=== PATIENT | male | born 1950 | race Hispanic/Latino ===

== ENCOUNTER 2023-11-28 18:36 | Emergency (ER) | payer MEDICARE ==
[2023-11-28 19:34] LABS: #Basophils 0.1 thou/uL (0.0-0.2); #Eosinphils 0.5 thou/uL (0.0-0.7); #Lymphocytes 1.3 thou/uL (1.20-3.40); #Monocytes 0.6 thou/uL (0.11-0.59); #Neutrophils 7.3 thou/uL (1.40-6.50); %Basophils 1.5 % (0.0-1.0); %Eosinophils 5.3 % (0.0-10.0); %Lymphocytes 13.5 % (21.0-51.0); %Monocytes 5.6 % (0.0-10.0); %Neutrophils 74.1 % (42.0-75.0); Hematocrit 40.8 % (42.0-52.0); Hemoglobin 13.8 g/dL (14.0-18.0); Mean Corpuscular HGB CONC 33.9 g/dL (32.0-36.0); Mean Corpuscular Hemoglobin 30.7 pg (27.0-31.0); Mean Corpuscular Volume 90.5 fl (78.0-98.0); Mean Platelet Volume 5.7 fL (7.4-10.4); Platelet Count 405 10x3/uL (130-400); RBC Distribution Width 12.8 % (11.5-14.5); Red Blood Cell (RBC) Count 4.51 mill/uL (4.70-6.10); White Blood Cell (WBC) Count 9.9 10x3/uL (4.8-10.8)
[2023-11-28 19:56] LABS: ALT (SGPT) 9 U/L (8-55); AST (SGOT) 15 U/L (5-34); Albumin 3.2 g/dL (3.4-4.8); Alkaline Phosphatase 55 U/L (40-110); Anion Gap 18 mmol/L (10-20); BUN (Urea Nitrogen) 10 mg/dL (8.4-25.7); Bilirubin, Total 0.6 mg/dL (0.2-1.2); Calc. Creatinine Clearance 0 mL/min (70-130); Calcium 8.9 mg/dL (7.8-10.44); Carbon Dioxide 25 mmol/L (23-31); Chloride 94 mmol/L (98-107); Estimated GFR 68; Globulin 4.6 g/dL (2.4-3.5); Glucose 174 mg/dL (83-110); Potassium 4.4 mmol/L (3.5-5.1); Protein, Total 7.8 g/dL (5.8-8.1); Sodium 133 mmol/L (136-145)
[2023-11-28 19:58] LABS: Troponin I 0.015 ng/mL (< 0.028)
[2023-11-28 20:15] LABS: Bilirubin Moderate (Negative); Blood, Urine Negative (Negative); Clarity Slightly Cloudy (Clear); Glucose, Urine (Dipstick) Negative (Negative); Ketone, Urine 40 mg/dL (Negative); Leukocyte Negative (Negative); Nitrite Negative (Negative); Protein, Urine (Dipstick) 100 mg/dL (Neg-Trace); Specific Gravity, Urine 1.015 (1.005-1.030); pH, Urine 7.5 (5.0-9.0)
[2023-11-28 20:33] LABS: Bacteria/HPF 1+ HPF (None Seen); CAUTI Indications for Culture Alt mental st,lethar; RBC/HPF None Seen HPF (0-3); Transitional Epithelial 0-3 HPF (None Seen)
[2023-11-28 20:34] LABS: Squamous Epithelial 0-3 HPF (0-3); Urine Culture Reflex No No
[2023-11-28] MEDS ORDERED: Azithromycin 500 MG VIAL ONE (21:10)
[2023-11-28] MEDS ORDERED: cefTRIAXone (ROCEPHIN) 1 GM VIAL ONE (21:10)
== END 2023-11-28 22:35 | disposition short-term general hospital (02) ==
LOC: BURERS 18:36
DX: J18.9 Pneumonia, unspecified organism (principal)
CPT/HCPCS: 71045; 71250; 80053; 81001; 84484; 85025; 87040; 93005; J0456; 36415; 96361; 96365; 96367; J0696